=== PATIENT | female | born 1985 | race Caucasian/White ===

== ENCOUNTER 2017-01-12 15:46 | Emergency (ER) | payer OTHER ==
[~2017-01-12] VITALS: Ht 154.9 cm; Wt 64.1 kg
[~2017-01-12 15:46] MED LIST: ENDOCET 5-3251 EACH PO; MOTRIN800 MG PO
[2017-01-12 15:53] VITALS: BP 110/80
[2017-01-12 16:22] LABS: BASOPHIL COUNT 0.1 K/uL (0-0.1); EOSINOPHIL (%) 5.2 % (0-5); EOSINOPHIL COUNT 0.3 K/uL (0-0.3); HEMATOCRIT 38.9 % (36.0-46.0); IMMATURE GRANULOCYTE (%) 0.2 % (0.0-0.7); INSTRUMENT ABS NEUTROPHIL CT 2.8 K/uL; LYMPHOCYTE COUNT 2.1 K/uL (1.0-2.8); MCH 26.1 PG (29.0-34.0); MCHC 31.4 G/DL (30.0-36.0); MCV 83.1 FL (83-99); MEAN PLAT.VOLUME 9.7 uM^3 (9.5-12.4); MONOCYTE (%) 5.7 % (3-12); MONOCYTE COUNT 0.3 K/uL (0-0.8); NEUTROPHIL (%) 50.9 % (45-76); NEUTROPHIL COUNT 2.8 K/uL (1.8-6.4); PLATELET COUNT 236 K/uL (156-360); RBC DIS.WIDTH-SD 39.4 % (39-53); RED BLOOD COUNT 4.68 M/uL (3.80-5.20); WHITE BLOOD COUNT 5.6 K/uL (4.1-10.2)
[2017-01-12 16:35] LABS: CHLORIDE 108 mEq/L (99-109); POTASSIUM 4.4 mEq/L (3.7-5.4); SODIUM 140 mEq/L (136-147)
[2017-01-12 16:37] LABS: GLUCOSE 103 mg/dL (70-99)
[2017-01-12 16:38] LABS: ANION GAP 11 MEQ/L (2-14)
[2017-01-12 16:39] LABS: TOTAL BILIRUBIN 0.8 mg/dL (0.0-1.0)
[2017-01-12 16:40] LABS: ALKALINE PHOSPHATASE 71 IU/L (3-129)
[2017-01-12 16:41] LABS: GFR ESTIMATE (CALCULATED) > 59 mL/min/
[2017-01-12 16:42] LABS: DIRECT BILIRUBIN 0.2 mg/dL (0.0-0.3); UREA NITROGEN (BUN) 12 mg/dL (9-23)
== END 2017-01-12 16:59 | disposition home or self-care (01) ==
LOC: EME 15:46
PROVIDERS: Nurse Practitioner Family
DX: S61.231A Puncture wound without foreign body of left index finger without damage to nail, initial encounter (principal); Z77.21 Contact with and (suspected) exposure to potentially hazardous body fluids; W46.0XXA Contact with hypodermic needle, initial encounter; Y99.0 Civilian activity done for income or pay; Y92.238 Other place in hospital as the place of occurrence of the external cause; Z88.0 Allergy status to penicillin
CPT/HCPCS: 80048; 80076; 85025; 99281; 99282